=== PATIENT | male | born 2000 | race Caucasian/White ===

== ENCOUNTER 2019-08-22 22:33 | Emergency (ER) | payer MEDICAID ==
[~2019-08-22] VITALS: Ht 160 cm; Wt 95.3 kg
[2019-08-22 22:54] VITALS: BP 146/94; Ht 160 cm; Wt 95.3 kg
== END 2019-08-23 01:20 | disposition home or self-care (01) ==
LOC: ED 22:33
DX: S62.502A Fracture of unspecified phalanx of left thumb, initial encounter for closed fracture (principal); S60.112A Contusion of left thumb with damage to nail, initial encounter; J45.909 Unspecified asthma, uncomplicated; T52.0X1A Toxic effect of petroleum products, accidental (unintentional), initial encounter; Y92.89 Other specified places as the place of occurrence of the external cause; Y93.89 Activity, other specified; Y99.8 Other external cause status
CPT/HCPCS: Q0092

== ENCOUNTER 2019-11-08 23:55 | Emergency (ER) | payer MEDICAID ==
[~2019-11-08] VITALS: Ht 162.6 cm; Wt 96.6 kg
[2019-11-09 00:01] VITALS: Ht 162.6 cm; Wt 96.6 kg
[2019-11-09 01:17] VITALS: BP 113/80
== END 2019-11-09 01:17 | disposition home or self-care (01) ==
LOC: ED 23:55
DX: J02.0 Streptococcal pharyngitis (principal); R07.89 Other chest pain; J45.909 Unspecified asthma, uncomplicated
CPT/HCPCS: J0561; J1885

== ENCOUNTER 2020-02-27 22:06 | Emergency (ER) | payer MEDICAID ==
[~2020-02-27] VITALS: Ht 162.6 cm; Wt 90.7 kg
[2020-02-27 22:08] VITALS: Ht 162.6 cm; Wt 90.7 kg
[2020-02-28 00:42] LABS: BASOPHIL % 0.9 % (0-2); PLATELET COUNT 205 x10^3mcL (130-400); RED CELL DISTRIBUTION WIDTH 13.7 % (11.5-14.5)
[2020-02-28 00:46] LABS: CARBON DIOXIDE 28.5 mmol/L (21-32); CHLORIDE SERUM 104 mmol/L (98-107); CREATININE SERUM 0.9 mg/dL (0.7-1.3); GFR1 > 60 mL/min; GLUCOSE SERUM 91 mg/dL (74-106); POTASSIUM SERUM 3.8 mmol/L (3.5-5.1); SODIUM SERUM 140 mmol/L (136-145)
[2020-02-28 01:04] VITALS: BP 136/86
== END 2020-02-28 01:04 | disposition home or self-care (01) ==
LOC: ED 22:06
PROVIDERS: Emergency Medicine
DX: J02.9 Acute pharyngitis, unspecified (principal); G47.30 Sleep apnea, unspecified; J45.909 Unspecified asthma, uncomplicated
CPT/HCPCS: J1100; Q0092